=== PATIENT | male | born 1985 | race Caucasian/White ===

== ENCOUNTER 2020-10-04 11:07 | Emergency (ER) | payer OTHER ==
[~2020-10-04] VITALS: Ht 188 cm; Wt 77.1 kg
== END 2020-10-04 13:05 | disposition home or self-care (01) ==
LOC: ER 11:07 → EDSEX 11:07 → ER 13:05
DX: S90.31XA Contusion of right foot, initial encounter (principal); W22.8XXA Striking against or struck by other objects, initial encounter; Y93.89 Activity, other specified; Y92.89 Other specified places as the place of occurrence of the external cause; Y99.8 Other external cause status